=== PATIENT | male | born 1990 | race African-American/Black ===

== ENCOUNTER 2017-01-30 00:43 | Emergency (ER) | payer SELFPAY | END 2017-01-30 01:20 | disposition home or self-care (01) | LOC: MADERS 00:43 | DX: M67.432 Ganglion, left wrist (principal); F17.210 Nicotine dependence, cigarettes, uncomplicated | CPT/HCPCS: 99283 ==

== ENCOUNTER 2017-07-04 22:37 | Emergency (ER) | payer SELFPAY ==
[2017-07-04] MEDS ORDERED: Acetaminophen/Codeine 30-300mg Tablet ONE (23:15)
== END 2017-07-04 23:17 | disposition home or self-care (01) ==
LOC: MADERS 22:37
DX: K02.9 Dental caries, unspecified (principal); F17.210 Nicotine dependence, cigarettes, uncomplicated
CPT/HCPCS: 99282

== ENCOUNTER 2017-07-25 13:42 | Emergency (ER) | payer SELFPAY ==
[2017-07-25] MEDS ORDERED: Acetaminophen/Codeine 30-300mg Tablet ONE (13:58)
[2017-07-25] MEDS ORDERED: Penicillin V Potassium 250 MG TAB ONE (13:58)
== END 2017-07-25 14:00 | disposition home or self-care (01) ==
LOC: MADERS 13:42
DX: K02.9 Dental caries, unspecified (principal); F17.210 Nicotine dependence, cigarettes, uncomplicated
CPT/HCPCS: 99282

== ENCOUNTER 2017-12-06 23:51 | Emergency (ER) | payer SELFPAY ==
[2017-12-07] MEDS ORDERED: Ketorolac Tromethamine 30 MG/ML VIAL ONE (00:03)
--- NOTE | 2017-12-07 07:41 | RAD ---
AP PELVIS 1 VIEW: Date: 12/07/17 HISTORY: Fall. Pelvic pain. FINDINGS: Sacral ala and pelvic rings are intact. No acute fracture or dislocation apparent. Phleboliths projec t over the pelvis. IMPRESSION: No acute osseous abnormalities. POS: [facility]
--- NOTE | 2017-12-07 07:50 | RAD ---
LUMBAR SPINE 3 VIEWS: HISTORY: Fall. Low back injury. FINDINGS: There are 5 lumbar-type vertebrae. Pedicles are intact. Vertebral body heights and alignment are ma intained. No acute fracture or dislocation are visible. Phleboliths project over the pelvis. IMPRESSION: No acute osseous abnormalities are demonstrated. POS: [facility]
== END 2017-12-07 00:50 ==
LOC: MADERS 23:51
DX: S39.92XA Unspecified injury of lower back, initial encounter (principal); W17.89XA Other fall from one level to another, initial encounter; Z87.891 Personal history of nicotine dependence
CPT/HCPCS: 72100; 72170; 96374; J1885

== ENCOUNTER 2019-05-22 18:07 | Emergency (ER) | payer SELFPAY ==
[2019-05-22] MEDS ORDERED: Cephalexin 500 MG CAP ONE (18:42)
== END 2019-05-22 18:51 | disposition home or self-care (01) ==
LOC: MADERS 18:07
DX: S80.212A Abrasion, left knee, initial encounter (principal); L08.9 Local infection of the skin and subcutaneous tissue, unspecified; Z87.891 Personal history of nicotine dependence; W19.XXXA Unspecified fall, initial encounter
CPT/HCPCS: 99283